=== PATIENT | female | born 1980 | race Caucasian/White ===

== ENCOUNTER 2017-07-28 16:55 | Emergency (ER) | payer SELFPAY ==
[2017-07-28] MEDS ORDERED: Ibuprofen 200 MG TAB ONE (17:39)
[2017-07-28] MEDS ORDERED: Acetaminophen 500 MG TAB ONE (17:39)
--- NOTE | 2017-07-28 18:18 | RAD ---
RIGHT WRIST THREE VIEWS: 07/28/17 HISTORY: Fall. Right wrist injury. FINDINGS: Scaphoid waist is intact. No acute fracture, dislocation, or aggressive osseous erosions. Ulna negati ve variance is noted. IMPRESSION: No acute osseous abnormalities are demonstrated. POS: [facility]
--- NOTE | 2017-07-28 18:34 | RAD ---
RIGHT ELBOW FOUR VIEWS: 07/28/17 HISTORY: Fall. Pain. COMPARISON: None. FINDINGS: No joint effusion. No fracture. No cortical irregularity. No periosteal reaction. IMPRESSION: Unremarkable four views right elbow. No posttraumatic change. POS: [facility]
== END 2017-07-28 17:50 | disposition home or self-care (01) ==
LOC: NAV ERS 16:55
DX: S63.501A Unspecified sprain of right wrist, initial encounter (principal); S53.401A Unspecified sprain of right elbow, initial encounter; F17.210 Nicotine dependence, cigarettes, uncomplicated; W01.0XXA Fall on same level from slipping, tripping and stumbling without subsequent striking against object, initial encounter; Y99.0 Civilian activity done for income or pay

== ENCOUNTER 2018-01-21 17:08 | Emergency (ER) | payer SELFPAY ==
[2018-01-21] MEDS ORDERED: Amoxicillin/Potassium Clav 875 MG TAB ONE (18:31)
== END 2018-01-21 18:42 | disposition home or self-care (01) ==
LOC: NAV ERS 17:08
DX: J02.9 Acute pharyngitis, unspecified (principal); H92.03 Otalgia, bilateral; F17.210 Nicotine dependence, cigarettes, uncomplicated
CPT/HCPCS: 87081; 87430; 99283

== ENCOUNTER 2018-04-16 09:15 | Emergency (ER) | payer SELFPAY ==
[2018-04-16 10:16] LABS: Bilirubin Negative (Negative); Blood, Urine Negative (Negative); Clarity Clear (Clear); Glucose, Urine (Dipstick) Negative (Negative); Leukocyte Trace (Negative); Nitrite Negative (Negative); Protein, Urine (Dipstick) Negative (Neg-Trace); Specific Gravity, Urine 1.025 (1.005-1.030); Urobilinogen 0.2 mg/dL (0.2-1.0)
[2018-04-16 10:23] LABS: Bacteria/HPF Rare-Few HPF (None Seen); RBC/HPF 0-3 HPF (0-3); WBC/HPF 0-3 HPF (0-3)
[2018-04-16 10:51] LABS: Pregnancy Test - Urine (BHCG) Negative (Negative); Pregu Control Background? CLEAR/WHITE (CLR/WHITE); Pregu Control Bar Appear? YES (CONTROL BAR); Specific Gravity 1.025 (1.002-1.036)
--- NOTE | 2018-04-16 13:14 | CT ---
CT THORACIC SPINE: Multiple axial tomograms were obtained through the thoracic spine with multiplanar reconstruction. HISTORY: Thoracic pain. FINDINGS: Thee are mild to moderate degenerative changes of the mid and lower thoracic spine with anterior oste ophytes. These are more prominent than expected for patient's age. There are end plate deformities seen at multiple levels of the thoracic spine consistent with Schmorl's nodes. There are end plate d eformities involving both superior and inferior end plate of T12. There is mild anterior wedging of T11 and T12 vertebrae which appears chronic with anterior osteophytes at both of these levels. There is mild loss of disk space throughout the lower thoracic levels. Posterior alignment is preserved. No evidence of acute fracture identified. There is a small osteophyte projecting posteriorly to the right of midline at T6 which does impinge o n the anterior cord. IMPRESSION: 1. Degenerative changes of the thoracic spine are more prominent than expected for patient's age. S mall osteophyte on the posterior T6 vertebra impinges on the cord to the right of midline as describe d above. 2. Incidentally noted is evidence of small left adrenal adenoma measuring 1.7 cm. The densities wou ld indicate benign adenoma as recorded on this noncontrast study. POS: [facility]
== END 2018-04-16 12:11 | disposition home or self-care (01) ==
LOC: NAV ERS 09:15
DX: M51.34 Other intervertebral disc degeneration, thoracic region (principal); D35.02 Benign neoplasm of left adrenal gland; M46.94 Unspecified inflammatory spondylopathy, thoracic region; M25.78 Osteophyte, vertebrae; F17.210 Nicotine dependence, cigarettes, uncomplicated
CPT/HCPCS: 72128; 81003; 81015; 81025

== ENCOUNTER 2018-05-30 12:36 | Outpatient (CLI) | payer MEDICAID, SELFPAY ==
--- NOTE | 2018-05-30 16:03 | ULT ---
ULTRASOUND PELVIS COMPLETE: HISTORY: Pelvic pain. TECHNIQUE: Real-time, mckeon scale, color Doppler, and spectral analysis was performed of the pelvis by transabdom inal and transvaginal approach. FINDINGS: The uterus measures 8.2 x 4.3 x 6 cm. There appear to be some bright echoes of the fundus of the end ometrium, likely calcifications. The right ovary measures 3.3 x 1.7 x 2.6 cm with a 1.4 cm cyst. The left ovary measures 2.3 x 3.2 x 1.9 cm with small follicles. Normal blood flow. No significant free fluid in the pelvis. IMPRESSION: Calcifications of the fundus of the endometrium; otherwise, unremarkable exam. POS: [facility]
== END 2018-05-30 12:37 | disposition home or self-care (01) ==
LOC: NAV ULT 12:36
PROVIDERS: ATTEND Nurse Practitioner Family
DX: R10.2 Pelvic and perineal pain (principal); N85.8 Other specified noninflammatory disorders of uterus
CPT/HCPCS: 76856

== ENCOUNTER 2019-09-28 19:43 | Emergency (ER) | payer OTHER ==
[2019-09-28] MEDS ORDERED: Lidocaine 1% w/Epinephrine 1:100K 30 ML VIAL ONE (22:03)
[2019-09-28] MEDS ORDERED: Sulfameth/Trimethoprim DS 800-160mg TAB ONE (22:23)
[2019-09-28] MEDS ORDERED: Bacitracin 1 PK ONE (22:23)
== END 2019-09-28 22:34 | disposition home or self-care (01) ==
LOC: NAV ERS 19:43
DX: L02.415 Cutaneous abscess of right lower limb (principal); F17.210 Nicotine dependence, cigarettes, uncomplicated
CPT/HCPCS: 10060; 87070; 87205; J2001

== ENCOUNTER 2019-10-05 06:16 | Emergency (ER) | payer OTHER ==
[2019-10-06 16:02] LABS: SARS-CoV-2 MS2 Positive; SARS-CoV-2 N Gene Negative; SARS-CoV-2 S Gene Negative; SARS-CoV-2 orf1ab Negative
== END 2019-10-05 08:21 | disposition home or self-care (01) ==
LOC: NAV ERS 06:16
DX: J02.9 Acute pharyngitis, unspecified (principal); Z20.828 Contact with and (suspected) exposure to other viral communicable diseases; F17.210 Nicotine dependence, cigarettes, uncomplicated
CPT/HCPCS: 87081; 87430; 87635; 99283; U0003

== ENCOUNTER 2020-03-06 11:06 | Emergency (ER) | payer OTHER ==
--- NOTE | 2020-03-06 11:43 | RAD ---
RIGHT ANKLE 3 VIEWS: HISTORY: Injury, right ankle pain FINDINGS: Soft tissue swelling is present. The ankle mortise is maintained. No acute fracture or dislocation is identified. A plantar calcaneal spur is present.
== END 2020-03-06 12:06 | disposition home or self-care (01) ==
LOC: NAV ERS 11:06
DX: S93.401A Sprain of unspecified ligament of right ankle, initial encounter (principal); F17.210 Nicotine dependence, cigarettes, uncomplicated; X50.9XXA Other and unspecified overexertion or strenuous movements or postures, initial encounter

== ENCOUNTER 2021-12-20 20:28 | Emergency (ER) | payer OTHER ==
[2021-12-20] MEDS ORDERED: diphenhydrAMINE 50 MG/ML VIAL ONE (21:17)
[2021-12-20] MEDS ORDERED: Sodium Chloride 0.9% 1,000 ML ONE (21:17)
[2021-12-20] MEDS ORDERED: Metoclopramide HCl 10 MG/2 ML VIAL ONE (21:17)
[2021-12-20] MEDS ORDERED: Sodium Chloride 0.9% 100 ML ONE (21:17)
[2021-12-20 21:42] LABS: #Lymphocytes 1.8 thou/uL (1.20-3.40); #Monocytes 0.3 thou/uL (0.11-0.59); #Neutrophils 4.8 thou/uL (1.40-6.50); %Basophils 0.4 % (0.0-1.0); %Eosinophils 0.1 % (0.0-10.0); %Lymphocytes 25.5 % (21.0-51.0); %Monocytes 4.8 % (0.0-10.0); %Neutrophils 69.1 % (42.0-75.0); Hemoglobin 14.4 g/dL (12.0-16.0); Mean Corpuscular HGB CONC 32.3 g/dL (32.0-36.0); Mean Corpuscular Hemoglobin 28.6 pg (27.0-31.0); Mean Corpuscular Volume 88.5 fL (78.0-98.0); Mean Platelet Volume 13.2 fL (7.4-10.4); Platelet Count 120 thou/uL (130-400); RBC Distribution Width 12.5 % (11.5-14.5); Red Blood Cell (RBC) Count 5.03 mill/uL (4.20-5.40); White Blood Cell (WBC) Count 6.9 thou/uL (4.8-10.8)
[2021-12-20 21:52] LABS: ALT (SGPT) 98 U/L (8-55); AST (SGOT) 64 U/L (5-34); Albumin 4.2 g/dL (3.5-5.0); Alkaline Phosphatase 90 U/L (40-110); Anion Gap 15 mmol/L (10-20); Anisocytosis SLIGHT = 6-15 cells (100X) (0-5/hpf); BUN (Urea Nitrogen) 10 mg/dL (7.0-18.7); Bilirubin, Total 0.7 mg/dL (0.2-1.2); Calc. Creatinine Clearance 0 mL/min (70-130); Calcium 9.5 mg/dL (7.8-10.44); Carbon Dioxide 23 mmol/L (22-29); Chloride 108 mmol/L (98-107); Estimated GFR 113; Globulin 2.6 g/dL (2.4-3.5); Glucose 126 mg/dL (70-105); Potassium 3.6 mmol/L (3.5-5.1); Protein, Total 6.8 g/dL (6.0-8.3); Sodium 142 mmol/L (136-145)
[2021-12-20 21:53] LABS: Schistocytes SLIGHT = 2-5 cells (100X) (0-1/hpf); Target Cells SLIGHT = 2-5 cells (100X) (0-1/hpf)
[2021-12-20 21:54] LABS: Platelet Morphology Comment Appears Decreased
[2021-12-20 22:22] LABS: Bilirubin Small (Negative); Blood, Urine Negative (Negative); Clarity Clear (Clear); Glucose, Urine (Dipstick) Negative (Negative); Ketone, Urine Negative (Negative); Leukocyte Negative (Negative); Nitrite Negative (Negative); Protein, Urine (Dipstick) Trace mg/dL (Neg-Trace); Specific Gravity, Urine 1.025 (1.005-1.030)
[2021-12-20 22:29] LABS: RBC/HPF 0-3 HPF (0-3); WBC/HPF 0-3 HPF (0-3)
[2021-12-20 22:30] LABS: Bacteria/HPF Rare-Few HPF (None Seen)
== END 2021-12-20 23:02 | disposition home or self-care (01) ==
LOC: NAV ERS 20:28
DX: U07.1 COVID-19 (principal); G43.909 Migraine, unspecified, not intractable, without status migrainosus; R11.2 Nausea with vomiting, unspecified; E86.0 Dehydration; F17.210 Nicotine dependence, cigarettes, uncomplicated
CPT/HCPCS: 71045; 80053; 81003; 81015; 85025; 96361; 96365; 96375; J1200; J2765; J7050

== ENCOUNTER 2023-02-02 15:00 | Emergency (ER) | payer OTHER, SELFPAY ==
[2023-02-02] MEDS ORDERED: Ketorolac Tromethamine 60 MG/2 ML VIAL ONE (16:00)
[2023-02-02] MEDS ORDERED: Ketorolac Tromethamine 30 MG/ML VIAL ONE (16:02)
== END 2023-02-02 16:30 | disposition home or self-care (01) ==
LOC: NAV ERS 15:00
DX: J06.9 Acute upper respiratory infection, unspecified (principal); J01.90 Acute sinusitis, unspecified; F17.210 Nicotine dependence, cigarettes, uncomplicated
CPT/HCPCS: 96372; 99283; J1885

== ENCOUNTER 2023-04-10 13:03 | Emergency (ER) | payer SELFPAY ==
[2023-04-10] MEDS ORDERED: Acetaminophen 500 MG TAB ONE (13:52)
[2023-04-10] MEDS ORDERED: Azithromycin 250 MG TAB ONE (13:52)
== END 2023-04-10 14:22 | disposition home or self-care (01) ==
LOC: NAV ERS 13:03
DX: H65.91 Unspecified nonsuppurative otitis media, right ear (principal); H73.91 Unspecified disorder of tympanic membrane, right ear; J06.9 Acute upper respiratory infection, unspecified; F17.210 Nicotine dependence, cigarettes, uncomplicated
CPT/HCPCS: 87635; 87804; 99283

== ENCOUNTER 2024-02-07 17:59 | Emergency (ER) | payer SELFPAY ==
[2024-02-07] MEDS ORDERED: Clindamycin 150 MG CAP ONE (18:57)
[2024-02-07] MEDS ORDERED: Naproxen 500 MG TAB ONE (18:58)
[2024-02-07] MEDS ORDERED: Ondansetron ODT 4 MG TAB ONE (18:58)
== END 2024-02-07 19:05 | disposition home or self-care (01) ==
LOC: NAV ERS 17:59
DX: L03.311 Cellulitis of abdominal wall (principal); I10 Essential (primary) hypertension; F17.210 Nicotine dependence, cigarettes, uncomplicated
CPT/HCPCS: 99283; Q0162

== ENCOUNTER 2024-05-04 13:13 | Emergency (ER) | payer SELFPAY ==
[~2024-05-04 13:13] MED LIST: Iopamidol 370 76% 100 ML VIAL ONE
[2024-05-04] MEDS ORDERED: Morphine 4 MG/ML VIAL ONE (13:57)
[2024-05-04] MEDS ORDERED: Sodium Chloride 0.9% 1,000 ML ONE (13:58)
[2024-05-04] MEDS ORDERED: Ondansetron PF 4 MG/2 ML Vial ONE (13:58)
[2024-05-04] MEDS ORDERED: Ketorolac Tromethamine 30 MG (1 mL) VIAL ONE (13:58)
[2024-05-04 14:02] LABS: #Basophils 0.1 thou/uL (0.0-0.2); #Eosinophils 0.1 thou/uL (0.0-0.7); #Lymphocytes 2.5 thou/uL (1.20-3.40); #Monocytes 0.7 thou/uL (0.11-0.59); #Neutrophils 8.2 thou/uL (1.40-6.50); %Basophils 0.5 % (0.0-1.0); %Eosinophils 1.3 % (0.0-10.0); %Lymphocytes 21.9 % (21.0-51.0); %Monocytes 5.6 % (0.0-10.0); %Neutrophils 70.7 % (42.0-75.0); Hematocrit 40.8 % (36.0-47.0); Hemoglobin 13.3 g/dL (12.0-16.0); Mean Corpuscular HGB CONC 32.6 g/dL (32.0-36.0); Mean Corpuscular Hemoglobin 27.3 pg (27.0-31.0); Mean Corpuscular Volume 83.7 fl (78.0-98.0); Mean Platelet Volume 11.5 fL (7.4-10.4); Platelet Count 175 10x3/uL (130-400); RBC Distribution Width 12.1 % (11.5-14.5); Red Blood Cell (RBC) Count 4.87 mill/uL (4.20-5.40); White Blood Cell (WBC) Count 11.6 10x3/uL (4.8-10.8)
[2024-05-04 14:18] LABS: ALT (SGPT) 11 U/L (Less than 34); AST (SGOT) 14 U/L (11-34); Albumin 3.7 g/dL (3.1-4.5); Alkaline Phosphatase 84 U/L (40-110); Anion Gap 12 mmol/L (10-20); BUN (Urea Nitrogen) 13 mg/dL (7.0-18.7); Bilirubin, Total 0.5 mg/dL (0.3-1.2); Calc. Creatinine Clearance 0 mL/min (70-130); Calcium 9.6 mg/dL (7.8-10.44); Carbon Dioxide 22 mmol/L (22-29); Chloride 109 mmol/L (98-107); Estimated GFR 90; Glucose 95 mg/dL (70-105); Protein, Total 6.7 g/dL (6.0-8.3); Sodium 139 mmol/L (136-145)
[2024-05-04] MEDS ORDERED: metroNIDAZOLE 500 MG TAB ONE (14:57)
[2024-05-04] MEDS ORDERED: Cipro 250 MG TAB ONE (14:58)
== END 2024-05-04 15:14 | disposition home or self-care (01) ==
LOC: NAV ERS 13:13
DX: K57.32 Diverticulitis of large intestine without perforation or abscess without bleeding (principal); F17.210 Nicotine dependence, cigarettes, uncomplicated
CPT/HCPCS: 74177; 80053; 85025; 96361; 96374; 96375; J1885; J2270; J2405; J7030; Q9967